=== PATIENT | male | born 1990 | race Caucasian/White ===

== ENCOUNTER → 2018-04-03 | Outpatient (CLI) | payer OTHER ==
--- NOTE | 2018-04-03 16:39 | CT ---
EXAMINATION TYPE: CT brain wo con DATE OF EXAM: 04/03/2018 COMPARISON: NONE HISTORY: Patient complains of headache and head pressure. CT DLP: 1046 mGycm. Automated Exposure Control for Dose Reduction was Utilized. TECHNIQUE: CT scan of the head is performed without contrast. FINDINGS: There is no acute intracranial hemorrhage, mass effect, or midline shift identified. No s uspicious extra-axial fluid collection is seen. The ventricles and sulci are within normal limits in size. The globes are intact. There is moderate mucosal thickening in the visualized ethmoid, frontal , and visualized portions of the maxillary sinuses. Inspissated secretions are also seen within the posterior nasopharynx. IMPRESSION: 1. No acute intracranial hemorrhage, mass effect, or midline shift is seen. 2. Moderate mucosal thickening involving the ethmoid, frontal, and maxillary sinuses. Consider acute sinusitis.
--- NOTE | 2018-04-04 09:25 | XR ---
EXAMINATION TYPE: XR spine complete AP and Lat DATE OF EXAM: 04/03/2018 COMPARISON: NONE HISTORY: Pain TECHNIQUE: AP and lateral views of the cervical, thoracic and lumbar spine submitted FINDINGS: There is a slight curvature of the thoracolumbar spine. Vertebral body height and disc interspace concepción ntained at all levels. Very minimal hypertrophic changes in the midthoracic spine. No significant deg enerative disc disease. Soft tissue calcifications are seen adjacent to the right mandible. IMPRESSION: Multilevel minimal hypertrophic change within the thoracic spine. There is a slight curva ture of the spine with no diagnostic evidence of significant degenerative disc disease.
== END | disposition home or self-care (01) ==
LOC: RADCTMAIN 16:08
PROVIDERS: ATTEND Internal Medicine
DX: M43.9 Deforming dorsopathy, unspecified (principal); M89.38 Hypertrophy of bone, other site; R22.0 Localized swelling, mass and lump, head; R52 Pain, unspecified
CPT/HCPCS: 70450; 72082

== ENCOUNTER 2019-08-09 08:39 | Emergency (ER) | payer OTHER ==
[2019-08-09 08:53] VITALS: TEMP 97.8
[2019-08-09] MEDS ORDERED: PROPARACAINE 0.5% OPHTH DROPS 15 ML BTL LEFT EYE STA (09:46)
--- NOTE | 2019-08-09 09:47 | ED ---
Eye Problem HPI - General Chief complaint: Eye Problems Stated complaint: Eye Pain Time Seen by Provider: 08/09/19 09:25 Source: patient Mode of arrival: ambulatory Limitations: no limitations - History of Present Illness Initial comments: 29-year-old male presenting today for chief complaint of right eye pain x 1 day. Patient states that he was grinding metal yesterday at work. He states he was wearing protective lenses however a piece seemed to have gotten into his eye. Patient states he immediately flushed the eye. He states he felt okay at that time. He states as evening progressed he began to express more irritation and redness and sensitivity to light. Patient states at that time he presented to urgent care where he had an IV examination. He was told there is no foreign body and was put on an antibiotic drop. Patient states that the symptoms have seemed to worsen he states he cannot open his eyes secondary sensory to light. Patient denies any nausea vomiting headache. Patient states that he is able to see of the eye however it is watery. Remaining review of system negative. Upon arrival patient appears well no signs of acute distress. Obvious signs of photophobia. - Related Data Home Medications Medication Instructions Recorded Confirmed No Known Home Medications 08/09/19 08/09/19 Allergies Allergy/AdvReac Type Severity Reaction Status Date / Time No Known Allergies Allergy Verified 08/09/19 09:41 Review of Systems ROS Statement: Those systems with pertinent positive or pertinent negative responses have been documented in the HPI. ROS Other: All systems not noted in ROS Statement are negative. Past Medical History Past Medical History: No Reported History History of Any Multi-Drug Resistant Organisms: None Reported Past Surgical History: No Surgical Hx Reported Past Psychological History: No Psychological Hx Reported Smoking Status: Current every day smoker Past Alcohol Use History: Occasional Past Drug Use History: Marijuana General Exam - General Exam Comments Initial Comments: General: The patient is awake and alert, in no distress, and does not appear acutely ill. Eye: +3 mm pupils are equal, round and reactive to light, extra-ocular movements are intact. No nystagmus. No APD. There is conjuctival injection of the right eye no injection of the left eye. No signs of icterus. Obvious foreign body at the 2 o'clock position in cornea over area of iris. Negative Arash sign. There is evidence of forcing uptake. Relief with proparacaine. Photophobia. Cardiovascular: There is a regular rate and rhythm. No murmur, rub or gallop is appreciated. Respiratory: Lungs are clear to auscultation, respirations are non-labored, breath sounds are equal. No wheezes, stridor, rales, or rhonchi. Musculoskeletal: Normal ROM, no tenderness. Strength 5/5. Sensation intact. Pulses equal bilaterally 2+. Neurological: A&O x 3. CN II-XII intact grossly, There are no obvious motor or sensory deficits. Coordination appears grossly intact. Speech is normal. Skin: Skin is warm and dry and no rashes or lesions are noted. Psychiatric: Cooperative, appropriate mood & affect, normal judgment. Limitations: no limitations Course Vital Signs 08/09/19 08/09/19 08:51 11:13 Temperature 97.8 F Pulse Rate 81 77 Respiratory 20 18 Rate Blood Pressure 144/80 137/78 O2 Sat by Pulse 99 98 Oximetry Medical Decision Making - Medical Decision Making 29-year-old male presenting to the emergency department for evaluation of possible active foreign body. Patient states he was told at the urgent care facility there is no foreign body. Obvious foreign body at the 2 o'clock position upon physical examination. No evidence of Arash sign. Pupils are round reactive to light. There is photophobia. The pain is relieved with proparacaine. Attempt at removal was initiated with a Q-tip. Unsuccessful. I then attention removal of the foreign body with an ALLERGIC brush. Again this is unsuccessful. I contacted ophthalmology who will admit the patient presented to the office for foreign body and rust ring removal. Patient states that he will immediately presented to the clinic. Patient does have current prescription for antibiotic drop. Disposition Clinical Impression: Foreign body of right eye, Acute right eye pain Disposition: HOME SELF-CARE Condition: Good Instructions (If sedation given, give patient instructions): Eye Foreign Body (ED) Additional Instructions: Please use medication as discussed. Please immediately present to Dr. Mahoney's office as discussed- he is awaiting your arrival--address is on this form. Please return to emergency room if the symptoms increase or worsen or for any other concerns. Is patient prescribed a controlled substance at d/c from ED?: No Referrals: None,Stated [Primary Care Provider] - 1-2 days Denzel Myers MD [STAFF PHYSICIAN] - 1-2 days Time of Disposition: 10:51
[2019-08-09] MEDS ORDERED: DIPH,PERTUS(ACELL)TETVAC-LF 0.5 ML VIAL IM ONE (10:30)
[2019-08-09 11:14] VITALS: BP 137/78; PULSE 77; RESP 18
== END 2019-08-09 11:13 | disposition home or self-care (01) ==
LOC: EC 08:39
DX: T15.01XA Foreign body in cornea, right eye, initial encounter (principal); F17.200 Nicotine dependence, unspecified, uncomplicated; Z23 Encounter for immunization; W20.8XXA Other cause of strike by thrown, projected or falling object, initial encounter; Y93.89 Activity, other specified; Y92.69 Other specified industrial and construction area as the place of occurrence of the external cause
CPT/HCPCS: 65220; 90471; 90715; 99283

== ENCOUNTER 2019-08-28 08:50 | Emergency (ER) | payer OTHER ==
[2019-08-28 08:56] VITALS: BP 104/60; PULSE 68; RESP 18; TEMP 97.8
[2019-08-28] MEDS ORDERED: PROPARACAINE 0.5% OPHTH DROPS 15 ML BTL BOTH EYES STA ×2 (09:06→11:04)
--- NOTE | 2019-08-28 09:10 | ED ---
ENT HPI - General Chief complaint: ENT Stated complaint: Eye injury-[facility] Time Seen by Provider: 08/28/19 08:58 Source: patient, RN notes reviewed, old records reviewed Mode of arrival: ambulatory Limitations: no limitations - History of Present Illness Initial comments: Patient is a 29-year-old male with chief complaint of left eye pain times one day. Patient reports that today was grinding metal at work and normally does or protective lenses. He reports it seems like a piece of wood went into his eye. He reports he did flush the eye shortly after and believes that he got the retained foreign body out. Patient reports that he was seen in emergency department 2 weeks ago for similar case only involving his right eye. He states he had a follow-up with ophthalmology with a head to remove the foreign body completely. He states that he has the antibiotic drops as given to him by the claims clerk. He reports he does have a follow-up appointment next week with claims clerk Dr. Mahoney. - Related Data Previous Rx's Medication Instructions Recorded Ofloxacin 0.3% Ophth Soln [Ocuflox 1 - 2 drops BOTH EYES QID #1 bottle 08/28/19 Ophth Soln] Allergies Allergy/AdvReac Type Severity Reaction Status Date / Time No Known Allergies Allergy Verified 08/28/19 09:09 Review of Systems ROS Statement: Those systems with pertinent positive or pertinent negative responses have been documented in the HPI. ROS Other: All systems not noted in ROS Statement are negative. Past Medical History Past Medical History: No Reported History History of Any Multi-Drug Resistant Organisms: None Reported Past Surgical History: No Surgical Hx Reported Past Psychological History: No Psychological Hx Reported Smoking Status: Current every day smoker Past Alcohol Use History: Occasional Past Drug Use History: Marijuana General Exam - General Exam Comments Initial Comments: 29-year-old male, no distress. Limitations: no limitations General appearance: alert, in no apparent distress Head exam: Present: atraumatic, normocephalic, normal inspection Eye exam: Present: normal appearance, PERRL, EOMI, other (minimal L eye irritation. L eye has irritation, has corneal abrasion at 4 oclock and 6 oclock position. ) ENT exam: Present: normal exam, normal oropharynx, mucous membranes moist Neck exam: Present: normal inspection. Absent: tenderness, meningismus, lymphadenopathy Respiratory exam: Present: normal lung sounds bilaterally. Absent: respiratory distress, wheezes, rales, rhonchi, stridor Cardiovascular Exam: Present: regular rate, normal rhythm, normal heart sounds. Absent: systolic murmur, diastolic murmur, rubs, gallop, clicks Extremities exam: Present: normal inspection, full ROM Neurological exam: Present: alert, oriented X3, CN II-XII intact Psychiatric exam: Present: normal affect, normal mood Course Vital Signs 08/28/19 08:53 Temperature 97.8 F Pulse Rate 68 Respiratory 18 Rate Blood Pressure 104/60 O2 Sat by Pulse 100 Oximetry Medical Decision Making - Medical Decision Making 29-year-old male presents today for left eye irritation after possible metal foreign body within within the eye while at work today. Patient reports he flushed his eye and believes he had the foreign body out as it does feel better at this time. This completes minor irritation. Fluorescein eye exam Patient does have evidence of corneal abrasion at the 4 o'clock position in a linear excoriations over the 6 o'clock position concerned and had a foreign body underneath the eyelid scratching it up and down. I discussed putting the Jennifer ent on antibiotic drops and following up with ophthalmology. He does not have any retained foreign body at this time. Patient is agreeable treatment plan will comply. Disposition Clinical Impression: Injury of conjunctiva and corneal abrasion of left eye w/o FB Disposition: HOME SELF-CARE Condition: Good Instructions (If sedation given, give patient instructions): Corneal Abrasion (ED) Additional Instructions: Please use medication as discussed. Please follow up with family doctor if symptoms have not improved over the next two days. Please return to the emergency room if your symptoms increase or worsen or for any other concerns. Prescriptions: Ofloxacin 0.3% Ophth Soln [Ocuflox Ophth Soln] 1 - 2 drops BOTH EYES QID #1 bottle Is patient prescribed a controlled substance at d/c from ED?: No Referrals: Guerrero Taylor MD [Primary Care Provider] - 1-2 days Rosalie Mahoney MD [STAFF PHYSICIAN] - 1-2 days Time of Disposition: 09:52
== END 2019-08-28 11:35 | disposition home or self-care (01) ==
LOC: EC 08:50
DX: S05.02XA Injury of conjunctiva and corneal abrasion without foreign body, left eye, initial encounter (principal); F17.200 Nicotine dependence, unspecified, uncomplicated; Y93.89 Activity, other specified; Y92.69 Other specified industrial and construction area as the place of occurrence of the external cause; Y99.0 Civilian activity done for income or pay
CPT/HCPCS: 99283

== ENCOUNTER 2019-12-06 17:11 | Emergency (ER) | payer BC, OTHER ==
[2019-12-06 17:33] VITALS: BP 132/70; PULSE 85; RESP 20; TEMP 98.9
[2019-12-06] MEDS ORDERED: ACET/COD 300 MG/30 MG STARTER PACK 6 TAB BTL PO STA (18:43)
--- NOTE | 2019-12-06 19:50 | XR ---
EXAMINATION TYPE: XR foot complete RT DATE OF EXAM: 12/06/2019 COMPARISON: None HISTORY: Bruising lateral aspect foot inversion injury TECHNIQUE: Three-view right foot FINDINGS: No acute fractures or dislocations are evident. Soft tissues are normal. Joint spaces are p reserved. IMPRESSION: 1. Normal three-view right foot. 2. Follow-up exams can be performed 7-10 days from acute trauma for continued pain.
--- NOTE | 2019-12-06 19:51 | XR ---
EXAMINATION TYPE: XR ankle complete RT DATE OF EXAM: 12/06/2019 COMPARISON: None HISTORY: Fall, right ankle pain TECHNIQUE: Three-view right ankle FINDINGS: There is a transverse nondisplaced fracture of the distal fibula. Mild soft tissue swelling is present. Ankle mortise is intact. IMPRESSION: 1. Nondisplaced fracture distal fibula with mild overlying soft tissue swelling.
--- NOTE | 2019-12-06 20:23 | ED ---
Lower Extremity Injury HPI - General Chief Complaint: Extremity Injury, Lower Stated Complaint: tooth injury Time Seen by Provider: 12/06/19 17:34 Source: patient Mode of arrival: wheelchair Limitations: no limitations - History of Present Illness Initial Comments: 29-year-old male presents today for chief complaint of right foot and ankle pain. Patient states he woke up yesterday evening that his foot was asleep he states he accidentally tripped and inverted the ankle. He states he has bruising on the ankle and the foot as well as pain and swelling. Patient does have loss sensation numbness tingling coolness or pallor of the extremity patient denies any hip pain denies any falls with injury to the head neck back and left leg or upper extremity. Remaining review of systems negative up upon arrival patient appears well this ends acute distress - Related Data Previous Rx's Medication Instructions Recorded Ofloxacin 0.3% Ophth Soln [Ocuflox 1 - 2 drops BOTH EYES QID #1 bottle 08/28/19 Ophth Soln] Allergies Allergy/AdvReac Type Severity Reaction Status Date / Time No Known Allergies Allergy Verified 12/06/19 17:33 Review of Systems ROS Statement: Those systems with pertinent positive or pertinent negative responses have been documented in the HPI. ROS Other: All systems not noted in ROS Statement are negative. Past Medical History Past Medical History: No Reported History History of Any Multi-Drug Resistant Organisms: None Reported Past Surgical History: No Surgical Hx Reported Past Psychological History: No Psychological Hx Reported Smoking Status: Current every day smoker Past Alcohol Use History: Occasional Past Drug Use History: Marijuana General Exam - General Exam Comments Initial Comments: General: The patient is awake and alert, in no distress, and does not appear acutely ill. Eye: Pupils are equal, round and reactive to light, extra-ocular movements are intact. No nystagmus. There is normal conjunctiva bilaterally. No signs of icterus. Cardiovascular: There is a regular rate and rhythm. No murmur, rub or gallop is appreciated. Respiratory: Lungs are clear to auscultation, respirations are non-labored, breath sounds are equal. No wheezes, stridor, rales, or rhonchi. Musculoskeletal: Upon inspection of the lower extremity bilaterally there is soft tissue swelling and ecchymosis of the lateral aspect of the right foot. There is no plantar aspect bruising or pain to palpation of the forefoot near the base of digits 1 and 2 patient is able to weight-bear there is swelling over the lateral malleolusStrength 5/5. Sensation intact. DP pulses equal bilaterally 2+. no foot drop Neurological: A&O x 3. CN II-XII intact, There are no obvious motor or sensory deficits. Coordination appears grossly intact. Speech is normal. Skin: Skin is warm and dry and no rashes or lesions are noted. Psychiatric: Cooperative, appropriate mood & affect, normal judgment. Limitations: no limitations Course Vital Signs 12/06/19 17:31 Temperature 98.9 F Pulse Rate 85 Respiratory 20 Rate Blood Pressure 132/70 O2 Sat by Pulse 97 Oximetry Medical Decision Making - Medical Decision Making 29-year-old male presents today for chief complaint of right foot ankle pain after inversion injury. Neurovascularly intact. I imaging studies reveal fracture of the distal fibula. Nondisplaced. No foot fracture identified. Patient is placed in a posterior mold prepatent synthetic splint with stirrups repeat neurovascular exam unchanged. Patient was given prescription for crutches. RICE instruction discussed the importance of orthopedic follow-up patient was discharged appearing well provide a work note. Patient verbalized understanding of return parameters and the importance of follow-up. Disposition Clinical Impression: Right fibular fracture, Right ankle sprain, Right ankle pain Disposition: HOME SELF-CARE Condition: Good Instructions (If sedation given, give patient instructions): Ankle Fracture (ED) Additional Instructions: Please use medication as discussed. Please follow-up with orthopedic surgery in next week. Use crutches for all ambulation (walking), non weight bearing on the right leg. Please return to emergency room if the symptoms increase or worsen or for any other concerns. Is patient prescribed a controlled substance at d/c from ED?: No Referrals: Guerrero Taylor MD [Primary Care Provider] - 1-2 days Time of Disposition: 20:22
== END 2019-12-06 20:27 | disposition home or self-care (01) ==
LOC: EC 17:11
DX: S82.401A Unspecified fracture of shaft of right fibula, initial encounter for closed fracture (principal); S93.401A Sprain of unspecified ligament of right ankle, initial encounter; F17.200 Nicotine dependence, unspecified, uncomplicated; X50.1XXA Overexertion from prolonged static or awkward postures, initial encounter
CPT/HCPCS: 29515; 99283

== ENCOUNTER 2022-11-10 02:02 | Emergency (ER) | payer BC ==
[2022-11-10 02:14] VITALS: BP 122/69; PULSE 89; RESP 18; TEMP 98
[2022-11-10] MEDS ORDERED: FLUORESCEIN STRIPS 1 MG STRIP BOTH EYES ONE (02:33)
[2022-11-10] MEDS ORDERED: PROPARACAINE 0.5% OPHTH DROPS 15 ML BTL BOTH EYES STA (02:33)
[2022-11-10] MEDS ORDERED: ERYTHROMYCIN 5 MG/GM OPHTH OINT 3.5 GM TUBE RIGHT EYE STA (02:57)
--- NOTE | 2022-11-10 02:59 | ED ---
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 Patient states he has a metallic foreign body to his right eye which has been present since about 4 PM yesterday. Patient made several attempts to wash the metallic foreign body out at home with no success. Patient denies any problems with visual acuity. Patient up-to-date on tetanus. Describing foreign-body sensation. Patient denies any other injuries. MD chief complaint: foreign body - Related Data Previous Rx's Medication Instructions Recorded Ofloxacin 0.3% Ophth Soln [Ocuflox 1 - 2 drops BOTH EYES QID #1 bottle 08/28/19 Ophth Soln] Allergies Allergy/AdvReac Type Severity Reaction Status Date / Time No Known Allergies Allergy Verified 11/10/22 02:14 Review of Systems ROS Statement: Those systems with pertinent positive or pertinent negative responses have been documented in the HPI. ROS Other: All systems not noted in ROS Statement are negative. Past Medical History Past Medical History: No Reported History History of Any Multi-Drug Resistant Organisms: None Reported Past Surgical History: No Surgical Hx Reported Past Psychological History: No Psychological Hx Reported Smoking Status: Current every day smoker Past Alcohol Use History: Occasional Past Drug Use History: Marijuana General Exam Limitations: no limitations General appearance: alert, in no apparent distress Head exam: Present: atraumatic, normocephalic, normal inspection Eye exam: Present: PERRL, EOMI, other (Patient has a tiny area of dye uptake to the 3 o'clock position over the corneal conjunctiva, no hyphema, no hypopyon). Absent: scleral icterus, conjunctival injection, periorbital swelling, periorbital tenderness Expanded Eyelids: Normal Inspection: Bilateral Pupils: Regular, Round: Left, Reactive: Left Sclera/Conjunctival: Foreign Body: Right (Patient has what appears to be a metallic foreign body under the lower eyelid toward the lateral canthus.) Anterior chamber: Normal Inspection: Bilateral Posterior chamber: Deferred: Bilateral Course Vital Signs 11/10/22 02:12 Temperature 98 F Pulse Rate 89 Respiratory 18 Rate Blood Pressure 122/69 O2 Sat by Pulse 98 Oximetry Procedures - Procedures Initial comment: Slit-lamp examination performed by me after instillation of eye anesthetic and standing. Corneal foreign body removed with moistened cotton tip applicator. This was a metallic foreign body near the lateral canthus underneath the lower eyelid. Medical Decision Making - Medical Decision Making Discussed treatment follow-up with the patient. Discussed risk of retained foreign body. We'll treat the patient with erythromycin ointment 4 times a day for 2-3 days. Patient voiced understanding. Tetanus up-to-date. Patient was told to return to the ER for any signs or symptoms worsen. Told to return immediately if any other problems arise. All questions answered. Treatment plan discussed. Patient in agreement Every effort has been made to ensure accuracy of this dictation. However, due to the limitations of electronic medical records and dictation devices, errors in charting still occur. The case was discussed in detail with ED attending physician. Presentation, findings, treatment plan discussed in detail. Machine Stitcher Dr. Avila Disposition Clinical Impression: Corneal abrasion, right, Foreign body of right eye Disposition: HOME SELF-CARE Condition: Good Instructions (If sedation given, give patient instructions): Eye Foreign Body (ED) Additional Instructions: [facility] antibiotic ointment 1 cm to the affected eye 4 times daily for to 3 days. Follow-up with your regular physician as directed. Return to the ER immediately if any symptoms worsen, new symptoms arise, or any other problems develop. Is patient prescribed a controlled substance at d/c from ED?: No Referrals: Denzel Myers MD [STAFF PHYSICIAN] - 1-2 days Time of Disposition: 02:58
== END 2022-11-10 03:19 | disposition home or self-care (01) ==
LOC: EC 02:02
DX: S05.01XA Injury of conjunctiva and corneal abrasion without foreign body, right eye, initial encounter (principal); F17.200 Nicotine dependence, unspecified, uncomplicated; F12.90 Cannabis use, unspecified, uncomplicated; W45.8XXA Other foreign body or object entering through skin, initial encounter
CPT/HCPCS: 65222; 99282

== ENCOUNTER 2024-01-18 21:02 | Emergency (ER) | payer BC, OTHER ==
[2024-01-18 21:46] VITALS: BP 132/69; PULSE 76; RESP 16; TEMP 98.9
[2024-01-18] MEDS: DIPH,PERTUS(ACELL)TETVAC-LF 0.5 ML VIAL IM ONE (22:17)
[2024-01-18] MEDS: ACETAMINOPHEN TAB 500 MG TAB PO STA (22:47)
[2024-01-18] MEDS ORDERED: BACITRACIN OINT 1 EACH PACKET TOPICAL ONE (23:34)
--- NOTE | 2024-01-18 23:34 | ED ---
General Adult HPI - General Chief complaint: Wound/Laceration Stated complaint: Laceration Left Forearm Time Seen by Provider: 01/18/24 21:49 Source: patient Mode of arrival: ambulatory Limitations: no limitations - History of Present Illness Initial comments: 33-year-old male presenting to the ED with a chief complaint of laceration. 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 States that he accidentally hit his left forearm against a pipe and now has laceration to his forearm. Tetanus status unknown. No other injuries at this time. No other complaints. - Related Data Previous Rx's Medication Instructions Recorded Ofloxacin 0.3% Ophth Soln [Ocuflox 1 - 2 drops BOTH EYES QID #1 bottle 08/28/19 Ophth Soln] Allergies Allergy/AdvReac Type Severity Reaction Status Date / Time No Known Allergies Allergy Verified 01/18/24 21:26 Review of Systems ROS Statement: Those systems with pertinent positive or pertinent negative responses have been documented in the HPI. ROS Other: All systems not noted in ROS Statement are negative. Past Medical History Past Medical History: No Reported History History of Any Multi-Drug Resistant Organisms: None Reported Past Surgical History: No Surgical Hx Reported Past Psychological History: No Psychological Hx Reported Smoking Status: Current every day smoker Past Alcohol Use History: Occasional Past Drug Use History: Marijuana General Exam Limitations: no limitations General appearance: alert, in no apparent distress Head exam: Present: atraumatic Neck exam: Present: normal inspection Respiratory exam: Present: normal lung sounds bilaterally Cardiovascular Exam: Present: regular rate, normal rhythm GI/Abdominal exam: Present: soft Extremities exam: Present: other (Strength and sensation equal and intact in bilateral upper extremities.) Neurological exam: Present: alert, oriented X3 Skin exam: Present: warm, dry Course Vital Signs 01/18/24 21:26 Temperature 98.9 F Pulse Rate 76 Respiratory 16 Rate Blood Pressure 132/69 O2 Sat by Pulse 98 Oximetry Procedures - Laceration Laceration #1 Site: upper extremity Size (cm): 7 Description: irregular Depth: simple, single layer Anesthetic Used: lidocaine 2%, with epi Amount (mls): 5 Pre-repair: wound explored, irrigated extensively, deep structures intact Size of Sutures: 4-0 Number of Sutures: 14 (13 simple interrupted, 1 vertical mattress) Technique: simple, interrupted, vertical mattress Patient Tolerated Procedure: well, no complications Medical Decision Making - Medical Decision Making Was pt. sent in by a medical professional or institution (, PA, CLAIMS ANALYST, urgent care, hospital, or custodial...) When possible be specific @ -No Did you speak to anyone other than the patient for history (EMS, parent, family, police, friend...)? What history was obtained from this source @ -No Did you review nursing and triage notes (agree or disagree)? Why? @ -I reviewed and agree with nursing and triage notes Were old charts reviewed (outside hosp., previous admission, EMS record, old EKG, old radiological studies, urgent care reports/EKG's, custodial records)? Report findings @ -No old charts were reviewed Differential Diagnosis (chest pain, altered mental status, abdominal pain women, abdominal pain men, vaginal bleeding, weakness, fever, dyspnea, syncope, hea dache, dizziness, GI bleed, back pain, seizure, CVA, palpatations, mental health, musculoskeletal)? @ -Differential Musculoskeletal Muscular strain, contusion, ligament sprain, fracture, arthritis, septic arthritis, bursitis, cellulitis, muscle spasm, nerve compression, DVT, arterial occlusion, herpes zoster, electrolyte abnormality, tumor.... This is not meant to be in all inclusive list EKG interpreted by me (3pts min.). @ -As above X-rays interpreted by me (1pt min.). @ -None done CT interpreted by me (1pt min.). @ -None done U/S interpreted by me (1pt. min.). @ -None done What testing was considered but not performed or refused? (CT, X-rays, U/S, labs)? Why? @ -None What meds were considered but not given or refused? Why? @ -None Did you discuss the management of the patient with other professionals (professionals i.e. , PA, CLAIMS ANALYST, lab, RT, psych nurse, social work therapist, renewable energy engineer, teacher, data officer, director case)? Give summary @ -No Was smoking cessation discussed for >3mins.? @ -No Was critical care preformed (if so, how long)? @ -No Were there social determinants of health that impacted care today? How? (Homelessness, low income, unemployed, alcoholism, drug addiction, transportation, low edu. Level, literacy, decrease access to med. care, longterm, rehab)? @ -No Was there de-escalation of care discussed even if they declined (Discuss DNR or withdrawal of care, Hospice)? DNR status @ -No What co-morbidities impacted this encounter? (DM, HTN, Smoking, COPD, CAD, Cancer, CVA, ARF, Chemo, Hep., AIDS, mental health diagnosis, sleep apnea, morbid obesity)? @ -None Was patient admitted / discharged? Hospital course, mention meds given and route, prescriptions, significant lab abnormalities, going to OR and other pertinent info. @ -Discharge 33-year-old male presenting to the ED after hitting his forearm against a metal pipe. Now has laceration to his left forearm. This was repaired. For further details please see procedure note. Tetanus was updated. Wound was covered with bacitracin and bandage. Discussed proper wound care. Discussed return precautions with patient and family who verbalized agreement. Undiagnosed new problem with uncertain prognosis? @ -No Drug Therapy requiring intensive monitoring for toxicity (Heparin, Nitro, Insulin, Cardizem)? @ -No Were any procedures done? @ -Yes, laceration repair Diagnosis/symptom? @ -Laceration left forearm Acute, or Chronic, or Acute on Chronic? @ -Acute Uncomplicated (without systemic symptoms) or Complicated (systemic symptoms)? @ -Uncomplicated Side effects of treatment? @ -No Exacerbation, Progression, or Severe Exacerbation? @ -No Poses a threat to life or bodily function? How? (Chest pain, [place], [place], pneumonia, PE, COPD, DKA, ARF, appy, cholecystitis, CVA, Diverticulitis, Homicidal, Suicidal, threat to staff... and all critical care pts) @ -No Disposition Clinical Impression: Laceration Disposition: HOME SELF-CARE Condition: Good Instructions (If sedation given, give patient instructions): Care For Your Stitches (ED) Additional Instructions: Please return to the Emergency Department if symptoms worsen or any other concerns. Monitor for signs of infection. Wound care as discussed. Please return in 7 to 10 days for suture removal. Is patient prescribed a controlled substance at d/c from ED?: No Referrals: None,Stated [Primary Care Provider] - 1-2 days Time of Disposition: 23:00
== END 2024-01-18 23:47 | disposition home or self-care (01) ==
LOC: EC 21:02
DX: S51.812A Laceration without foreign body of left forearm, initial encounter (principal); F17.200 Nicotine dependence, unspecified, uncomplicated; F12.90 Cannabis use, unspecified, uncomplicated; Z23 Encounter for immunization; W22.8XXA Striking against or struck by other objects, initial encounter; Y99.0 Civilian activity done for income or pay
CPT/HCPCS: 12002; 90471; 90715; 99283